=== PATIENT | female | born 2000 | race American Indian/Alaskan Native ===

== ENCOUNTER 2019-05-13 19:33 | Emergency (ER) | payer SELFPAY ==
--- NOTE | 2019-05-13 21:48 | Event Note ---
ED Screening Note Date of service: 05/13/19 Time: 21:47 ED Screening Note: 19 y o f presents cc of blood in urine, dysuria and flank pain x2 days LMP: 2 weeks ago This initial assessment/diagnostic orders/clinical plan/treatment(s) is/are subject to change based on patients health status, clinical progression and re- assessment by fellow clinical providers in the ED. Further treatment and workup at subsequent clinical providers discretion. Patient/guardian urged not to elope from the ED as their condition may be serious if not clinically assessed and managed. Initial orders include: ua,upt
[2019-05-13 21:52] VITALS: BP 109/66
[2019-05-14 01:33] LABS: Bilirubin,Urine NEG (Negative); Blood,Urine LG (Negative); Color,Urine Amber (Yellow); Mucus,Urine 2+ /HPF
[2019-05-14 02:09] LABS: HCG Qualitative,Urine Negative (Negative)
--- NOTE | 2019-05-14 02:32 | Emergency Department Report ---
ED Female HPI - General Chief complaint: Abdominal Pain Stated complaint: BLOOD IN URINE Time Seen by Provider: 05/14/19 00:34 Source: patient Mode of arrival: Ambulatory Limitations: No Limitations - History of Present Illness Initial comments: 19-year-old -Citizen Of [place] female presents to the emergency room for blood in her urine since last night. Patient denies any pelvic pain but does report a little bit of light pressure. Patient reports her last menstrual period was 04/30/2019. Patient denies any fever chills no nausea no vomiting no back pain. -: Last night Improves with: none Worsens with: none - Related Data Previous Rx's Medication Instructions Recorded Last Taken Type Nitrofurantoin [place]/M-Cryst 100 mg PO Q12HR #14 capsule 05/14/19 Unknown Rx [Macrobid CAP] Allergies Allergy/AdvReac Type Severity Reaction Status Date / Time No Known Allergies Allergy Verified 05/13/19 20:55 ED Review of Systems ROS: Stated complaint: BLOOD IN URINE Other details as noted in HPI Comment: All other systems reviewed and negative ED Past Medical Hx - Past Medical History Previous Medical History?: No - Surgical History Past Surgical History?: No - Social History Smoking Status: Never Smoker Substance Use Type: None - Medications Home Medications: Home Medications Medication Instructions Recorded Confirmed Last Taken Type Nitrofurantoin [place]/M-Cryst 100 mg PO Q12HR #14 capsule 05/14/19 Unknown Rx [Macrobid CAP] ED Physical Exam - General Limitations: No Limitations General appearance: alert, in no apparent distress - Head Head exam: Present: atraumatic, normocephalic - Eye Eye exam: Present: normal appearance - ENT ENT exam: Present: mucous membranes moist - GI/Abdominal GI/Abdominal exam: Present: soft. Absent: distended, tenderness, guarding, rebound - Back Exam Back exam: Present: normal inspection - Neurological Exam Neurological exam: Present: alert, oriented X3 - Psychiatric Psychiatric exam: Present: normal affect, normal mood - Skin Skin exam: Present: warm, dry, intact, normal color. Absent: rash ED Course Vital Signs 05/13/19 21:50 Temperature 98.1 F Pulse Rate 83 Respiratory 16 Rate Blood Pressure 109/66 O2 Sat by Pulse 100 Oximetry ED Medical Decision Making - Medical Decision Making 19-year-old -Citizen Of [place] female presents to the emergency room for blood in her urine since last night. Patient denies any pelvic pain but does report a little bit of light pressure. Patient reports her last menstrual period was 04/30/2019. Patient denies any fever chills no nausea no vomiting no back pain. Urinalysis comes back with positive nitrates large amount of blood. Patient be treated for urinary tract infection with Macrobid 100 mg by mouth twice a day 10 days and instructions to increase her fluid intake. Critical care attestation.: If time is entered above; I have spent that time in minutes in the direct care of this critically ill patient, excluding procedure time. ED Disposition Clinical Impression: UTI (urinary tract infection) Disposition: TO HOME OR SELFCARE Is pt being admited?: No Does the pt Need Aspirin: No Condition: Stable Instructions: Abdominal Pain (ED), Urinary Tract Infection in Women (ED) Additional Instructions: Follow-up with a primary care provider [employer] provider after completion of antibiotics. Please is increase her water intake. Prescriptions: Nitrofurantoin [place]/M-Cryst [Macrobid CAP] 100 mg PO Q12HR #14 capsule Referrals: PRIMARY CAREMD [Primary Care Provider] - 3-5 Days [facility] [Outside] - 3-5 Days JOSÉ MIGUEL MILLAN MD [Staff Physician] - 3-5 Days FELICITA PAGE MD [Staff Physician] - 3-5 Days Forms: Work/School Release Form(ED)
== END 2019-05-14 02:44 | disposition home or self-care (01) ==
LOC: ED 19:33
DX: N39.0 Urinary tract infection, site not specified (principal)
CPT/HCPCS: 81001; 81025; 87086